=== PATIENT | female | born 1990 | race Caucasian/White ===

== ENCOUNTER 2017-03-14 17:02 | Emergency (ER) | payer OTHER ==
[2017-03-14] MEDS ORDERED: cefTRIAXone 1 GM VIAL IM STA (18:00)
[2017-03-14] MEDS ORDERED: DEXAMETHASONE 10 MG/ML VIAL PO STA (18:00)
--- NOTE | 2017-03-14 18:03 | ED Physician Documentation ---
PD HPI HEENT - Stated complaint Stated Complaint: SORE/SWOLLEN THROAT - Chief complaint Chief Complaint: Heent - History obtained from History obtained from: Patient - History of Present Illness Timing - onset: How many weeks ago (1) Timing - duration: Weeks (1) Timing - details: Gradual onset, Still present Location: Left ear, Throat Improves: Medication Worsens: Swalllowing Associated symptoms: Fever, Congestion, Swollen nodes, Cough Similar symptoms before: Has not had sx before Recently seen: Not recently seen - Additional information Additional information: 26-year-old female has developed a sore throat and swelling in the back of her throat with severe pain with swallowing. She has had fever and congestion. She has some pain and muffled hearing the left ear.She has been getting some relief with the use of ibuprofen. Review of Systems Constitutional: reports: Fever, Myalgias, Fatigue Eyes: denies: Decreased vision Ears: reports: Loss of hearing, Ear pain Nose: reports: Rhinorrhea / runny nose, Congestion Throat: reports: Sore throat Cardiac: denies: Chest pain / pressure, Palpitations Respiratory: reports: Cough. denies: Dyspnea GI: denies: Vomiting Skin: denies: Rash PD PAST MEDICAL HISTORY - Present Medications Home Medications: Ambulatory Orders Medication Instructions Recorded Confirmed Amox/Clav 875/125 [Augmentin] 1 each PO Q12H #20 tablet 03/14/17 Citalopram [CeleXA] 40 mg PO DAILY 03/14/17 03/14/17 lamoTRIgine [LaMICtal] 25 mg PO DAILY 03/14/17 03/14/17 - Allergies Allergies/Adverse Reactions: Allergies Allergy/AdvReac Type Severity Reaction Status Date / Time No Known Drug Allergies Allergy Verified 03/14/17 18:09 PD ED PE NORMAL - Vitals Vital signs reviewed: Yes (Normal) - General General: No acute distress, Well developed/nourished - HEENT HEENT: Atraumatic, PERRL, EOMI, Other - Neck Neck: Supple, no meningeal sign, No bony TTP, Other (Tender submandibular adenopathy on the left) - Cardiac Cardiac: RRR, No murmur - Respiratory Respiratory: No respiratory distress, Clear bilaterally - Abdomen Abdomen: Soft, Non tender - Back Back: No CVA TTP, No spinal TTP - Derm Derm: Normal color, Warm and dry, No rash - Extremities Extremities: No deformity, No edema - Neuro Neuro: No motor deficit, No sensory deficit Eye Opening: Spontaneous Motor: Obeys Commands Verbal: Oriented GCS Score: 15 - Psych Psych: Normal mood, Normal affect Results - Vitals Vitals: Vital Signs - 24 hr 03/14/17 17:18 Temperature 36.3 C L Heart Rate 71 Respiratory 18 Rate Blood Pressure 120/68 O2 Saturation 100 Oxygen O2 Source Room air - Labs Labs: Laboratory Tests 03/14/17 17:55 Group A Strep Rapid POSITIVE H PD MEDICAL DECISION MAKING - ED course Complexity details: reviewed results, re-evaluated patient, considered differential, d/w patient ED course: 26-year-old female with acute peritonsillar abscess is administered dexamethasone 10 mg orally and 1 g of Rocephin IM. She does appear to be adequately hydrated. Departure - Departure Disposition: 01 Home, Self Care Clinical Impression: Peritonsillar abscess, Strep pharyngitis Otitis media Qualifiers: Otitis media type: suppurative Chronicity: acute Laterality: left Recurrence: not specified as recurrent Spontaneous tympanic membrane rupture: without spontaneous rupture Qualified Code(s): H66.002 - Acute suppurative otitis media without spontaneous rupture of ear drum, left ear Condition: Stable Instructions: ED Peritonsillar Abscess Follow-Up: TERI Hickman [Provider Group] Prescriptions: Amox/Clav 875/125 [Augmentin] 1 each PO Q12H #20 tablet Forms: Activity restrictions
[2017-03-14] MEDS ORDERED: CHERRY SYRUP 10 ML UDC PO ONE (18:13)
[2017-03-14] MEDS ORDERED: DEXAMETHASONE 10 MG/ML VIAL ONE (18:13)
[2017-03-14] MEDS ORDERED: LIDOCAINE 1% 2 ML VIAL ONE (18:13)
[2017-03-14] MEDS ORDERED: cefTRIAXone 1 GM VIAL ONE (18:14)
[2017-03-14 18:32] LABS: RAPID STREP SCREEN REAGENT QC YELLOW (YELLOW)
[2017-03-14 18:43] VITALS: BP 147/97
== END 2017-03-14 18:42 | disposition home or self-care (01) ==
LOC: ED 17:02
DX: J36 Peritonsillar abscess (principal); H66.002 Acute suppurative otitis media without spontaneous rupture of ear drum, left ear
CPT/HCPCS: 87430; 96372; 99283; A9270

== ENCOUNTER 2018-09-25 21:45 | Emergency (ER) | payer OTHER ==
[2018-09-25 21:51] VITALS: BP 148/103
[2018-09-25] MEDS ORDERED: AMOX/CLAV 875 MG/125 MG TABLET PO STA (21:53)
--- NOTE | 2018-09-25 21:56 | ED Physician Documentation ---
PD HPI HEENT - Stated complaint Stated Complaint: SORE GLANDS/SINUS PRESSURE - Chief complaint Chief Complaint: Heent - History obtained from History obtained from: Patient - History of Present Illness Timing - onset: Other (10 days of bilateral ear pain, cough, sore throat, nasal congestion, sinus pain and ear pain without loss of hearing. No fevers.) Review of Systems Ten Systems: 10 systems reviewed and negative Constitutional: denies: Fever, Chills Nose: reports: Rhinorrhea / runny nose, Congestion, Sinus pressure / pain Throat: reports: Sore throat Respiratory: reports: Cough GI: denies: Vomiting, Diarrhea PD PAST MEDICAL HISTORY - Past Surgical History Past Surgical History: No - Present Medications Home Medications: Ambulatory Orders Medication Instructions Recorded Confirmed Amox/Clav 875/125 [Augmentin] 1 each PO Q12H #20 tablet 03/14/17 Citalopram [CeleXA] 40 mg PO DAILY 03/14/17 03/14/17 lamoTRIgine [LaMICtal] 25 mg PO DAILY 03/14/17 03/14/17 Amox/Clav 875/125 [Augmentin] 1 each PO Q12H #20 tablet 09/25/18 Guaifenesin/Pseudoephedrne HCl 1 each PO BID PRN #20 tab.er.12h 09/25/18 [Mucinex D ER 600-60 mg Tablet] Mometasone Furoate [Nasonex] 1 spray NS BID #1 spray.pump 09/25/18 - Allergies Allergies/Adverse Reactions: Allergies Allergy/AdvReac Type Severity Reaction Status Date / Time No Known Drug Allergies Allergy Verified 09/25/18 21:51 - Social History Does the pt smoke?: Yes Smoking Status: Current every day smoker Does the pt drink ETOH?: Yes Does the pt have substance abuse?: No - Immunizations Immunizations are current?: Yes Immunizations: TDAP current <10years PD ED PE NORMAL - Vitals Vital signs reviewed: Yes - General General: Alert and oriented X 3, No acute distress - HEENT HEENT: Other (Tender bilateral maxillary sinuses, TMs and oropharynx are normal, no cervical adenopathy) - Neck Neck: Supple, no meningeal sign, No bony TTP - Cardiac Cardiac: RRR, No murmur - Respiratory Respiratory: No respiratory distress, Other (Rhonchorous at the bases) - Abdomen Abdomen: Non tender - Derm Derm: No rash - Neuro Neuro: Alert and oriented X 3, Normal speech Results - Vitals Vitals: Vital Signs - 24 hr 09/25/18 21:49 Temperature 36.8 C Heart Rate 76 Respiratory 18 Rate Blood Pressure 148/103 H O2 Saturation 98 Oxygen O2 Source Room air PD MEDICAL DECISION MAKING - Consults Consults: Consulted (name) (does fit IDSA criteria for abx tx given timecourse.) Departure - Departure Disposition: Home, Self Care Clinical Impression: Sinusitis Qualifiers: Sinusitis location: maxillary Chronicity: acute Recurrence: recurrent Qualified Code(s): J01.01 - Acute recurrent maxillary sinusitis Condition: Good Record reviewed to determine appropriate education?: Yes Instructions: ED Sinusitis Abx Tx Prescriptions: Amox/Clav 875/125 [Augmentin] 1 each PO Q12H #20 tablet Guaifenesin/Pseudoephedrne HCl [Mucinex D ER 600-60 mg Tablet] 1 each PO BID PRN #20 tab.er.12h PRN Reason: congestion Mometasone Furoate [Nasonex] 1 spray NS BID #1 spray.pump Comments: Call your doctor to arrange a follow-up appointment, make the next available appointment. In the interim, return anytime if worse or if new symptoms develop. Your blood pressure was elevated today on check into the emergency department. This does not mean that you have hypertension, it is a common phenomenon to come to the emergency department and have elevated blood pressure. I recommend that you see your primary care physician within the week to have it rechecked when you are feeling better.
== END 2018-09-25 22:02 | disposition home or self-care (01) ==
LOC: ED 21:45
DX: J01.01 Acute recurrent maxillary sinusitis (principal); R03.0 Elevated blood-pressure reading, without diagnosis of hypertension; F17.200 Nicotine dependence, unspecified, uncomplicated
CPT/HCPCS: 99283; A9270